=== PATIENT | male | born 1950 | race Caucasian/White ===

== ENCOUNTER 2018-08-14 07:15 | Day surgery (SDC) | payer MEDICARE, OTHER ==
[2018-08-09 16:51] VITALS: BMI 30.1
[~2018-08-14 07:15] MED LIST: LACTATED RINGERS 1,000 ML IV SCH
[2018-08-14 07:47] VITALS: TEMP 98.4
[2018-08-14] MEDS ORDERED: LIDOCAINE 1% 20 ML VIAL (10MG/ML) FOR IV START INTRADERMA ONE (07:55)
[2018-08-14] MEDS ORDERED: ENALAPRILAT 1.25 MG/ML 1 ML VIAL IVP ONE (08:06)
[2018-08-14 08:12] LABS: Glucose,Whole Blood 137 mg/dL (75-99)
[2018-08-14] MEDS ORDERED: PROPOFOL 10 MG/ML 20 ML VIAL IV ONE (08:43)
[2018-08-14 09:13] VITALS: RESP 16
--- NOTE | 2018-08-14 09:15 | P.PCN ---
Date of Procedure: 08/14/18 Procedure(s) Performed: Procedure: Total colonoscopy. Preoperative diagnosis: Screening for neoplasia. Postoperative diagnosis: Exam within normal limits. Preparation: HalfLytely prep. Sedation: Was provided by anesthesia. Brief clinical history: The patient is 68-year-old male who is scheduled for thi s evaluation for screening for neoplasia because of change as risk factor as well as family history of colon cancer in his brother. His last colonoscopy was in 2011. The patient has no abdominal complaints, bleeding or anemia. Procedure: With the patient on his left lateral decubitus position and after informed consent and adequate sedation, the perianal area was inspected and it did not show any fissures or fistulas. There were no masses felt on digital rectal examination. The Olympus CFH 190L video colonoscope was then inserted in the rectum in the usual fashion and advanced to the cecum. The mucosa appeared healthy. No polyps or tumors were seen or any obvious diverticular disease or other pathology. I retroflexed the endoscope in the rectum before the endoscope was withdrawn. The patient tolerated the procedure well. Plan: The patient was reassured. He will follow up with you as planned. With her family history of colon cancer in his brother, I am recommending repeat exam in 5 years.
[2018-08-14] MEDS ORDERED: hydrALAZINE HCL 20 MG/ML 1 ML VIAL IV ONE (09:39)
[2018-08-14 10:05] VITALS: BP 177/88; PULSE 75
== END 2018-08-14 10:15 | disposition home or self-care (01) ==
LOC: ORWHC2ENDO 07:15
DX: Z12.11 Encounter for screening for malignant neoplasm of colon (principal); Z80.0 Family history of malignant neoplasm of digestive organs; E11.9 Type 2 diabetes mellitus without complications; K21.9 Gastro-esophageal reflux disease without esophagitis; I10 Essential (primary) hypertension; E78.5 Hyperlipidemia, unspecified; M19.90 Unspecified osteoarthritis, unspecified site; Z79.84 Long term (current) use of oral hypoglycemic drugs; Z79.899 Other long term (current) drug therapy; Z86.73 Personal history of transient ischemic attack (TIA), and cerebral infarction without residual deficits
CPT/HCPCS: J0360; J2704; G0105

== ENCOUNTER 2018-08-19 14:36 | Emergency (ER) | payer MEDICARE, OTHER ==
[2018-08-19 14:45] VITALS: BP 175/71; PULSE 74; RESP 18; TEMP 98.9
--- NOTE | 2018-08-19 16:03 | ED ---
General Adult HPI - General Chief complaint: Recheck/Abnormal Lab/Rx Stated complaint: post op hypertension Time Seen by Provider: 08/19/18 15:14 Source: patient, RN notes reviewed Mode of arrival: ambulatory Limitations: no limitations - History of Present Illness Initial comments: 68-year-old male with a past medical history of CVA, diabetes, GERD, hy perlipidemia, hypertension presents to the emergency department for a chief complaint of change in blood pressures. Patient states that he had a colonoscopy 30. States that since then he has been checking his blood pressure about every hour. States that he has been noticing his blood pressure is higher than normal anywhere between the 140s to 200s. Patient states one time it did go down to 120 systolic. States he is concerned about his blood pressure changing every hour. Patient denies any symptoms. Denies any chest pain, shortness of breath, back pain, abdominal pain, headache, or visual changes. States he had an increase in his blood pressure medication a couple months ago. States he called his doctor who told him to take another blood pressure medication pill but he decided to come to the ER to be evaluated.Patient has no other complaints at this time including shortness of breath, chest pain, abdominal pain, nausea or vomiting, headache, or visual changes. - Related Data Home Medications Medication Instructions Recorded Confirmed Aspirin [Adult Low Dose Aspirin EC] 81 mg PO DAILY 08/09/18 08/14/18 Atorvastatin [Lipitor] 40 mg PO DAILY 08/09/18 08/09/18 Losartan/Hydrochlorothiazide 1 each PO DAILY 08/09/18 08/09/18 [Losartan-Hctz 100-12.5 mg Tab] Multivitamins, Thera [Multivitamin 1 tab PO DAILY 08/09/18 08/09/18 (formulary)] metFORMIN HCL [Glucophage] 500 mg PO QAM 08/09/18 08/09/18 Allergies Allergy/AdvReac Type Severity Reaction Status Date / Time No Known Allergies Allergy Verified 08/14/18 07:34 Review of Systems ROS Statement: Those systems with pertinent positive or pertinent negative responses have been documented in the HPI. ROS Other: All systems not noted in ROS Statement are negative. Past Medical History Past Medical History: CVA/TIA, Diabetes Mellitus, GERD/Reflux, Hyperlipidemia, Hypertension, Osteoarthritis (OA) Additional Past Medical History / Comment(s): stroke 2011- some vision loss left eye, History of Any Multi-Drug Resistant Organisms: None Reported Past Surgical History: Hernia Repair, Orthopedic Surgery, Tonsillectomy Additional Past Surgical History / Comment(s): fusion rt great toe, Past Anesthesia/Blood Transfusion Reactions: No Reported Reaction Past Psychological History: No Psychological Hx Reported Smoking Status: Former smoker Past Alcohol Use History: None Reported Past Drug Use History: None Reported - Past Family History Brother(s) Family Medical History: Cancer General Exam Limitations: no limitations General appearance: alert, in no apparent distress, anxious (Patient does appear somewhat anxious) Head exam: Present: atraumatic, normocephalic, normal inspection Eye exam: Present: normal appearance, PERRL, EOMI. Absent: scleral icterus, conjunctival injection, periorbital swelling ENT exam: Present: normal exam, normal oropharynx, mucous membranes moist, normal external ear exam Neck exam: Present: normal inspection, full ROM. Absent: tenderness, mening ismus, lymphadenopathy Respiratory exam: Present: normal lung sounds bilaterally. Absent: respiratory distress, wheezes, rales, rhonchi, stridor Cardiovascular Exam: Present: regular rate, normal rhythm, normal heart sounds. Absent: systolic murmur, diastolic murmur, rubs, gallop, clicks GI/Abdominal exam: Present: soft, normal bowel sounds. Absent: distended, tenderness, guarding, rebound, rigid Neurological exam: Present: alert, oriented X3, CN II-XII intact Psychiatric exam: Present: normal affect, normal mood Course Vital Signs 08/19/18 14:42 Temperature 98.9 F Pulse Rate 74 Respiratory 18 Rate Blood Pressure 175/71 O2 Sat by Pulse 99 Oximetry Medical Decision Making - Medical Decision Making 68-year-old male presents to the emergency department for a chief complaint of hypertension. Patient states his blood pressure has been ranging anywhere between the 140s to 200s. Patient does have a history of hypertension and recently had a medication increased. Patient states he has been checking his blood pressure every hour because of this and is concerned that it is not stable. Patient is denying any symptoms such as chest pain, shortness of breath, abdominal pain, back pain, visual changes. Patient's blood pressure is 135/71 here. I did discuss with patient that he has extrinsic asymptomatic hypertension. Reassured patient that at this time is recommended he follow-up with primary care for the pressure medication adjustment if necessary. Discussed that instead of checking his blood pressure every hour he should check it once a day at the same time every day and take this locked his primary care doctor. I did inform patient to return here if he is developing any symptoms and had a lengthy discussion about the symptoms. Patient is in agreement with this plan and agrees with discharge. Disposition Clinical Impression: Asymptomatic hypertension Disposition: HOME SELF-CARE Condition: Good Instructions (If sedation given, give patient instructions): Heart Healthy Diet (ED), Chronic Hypertension (ED) Additional Instructions: Please follow-up with your doctor on Monday. Please return here to the emergency department if you develop any symptoms such as chest pain, shortness of breath, abdominal pain, back pain, or headache. Is patient prescribed a controlled substance at d/c from ED?: No Referrals: Shubham Devries MD [Primary Care Provider] - 1-2 days Time of Disposition: 16:02
== END 2018-08-19 16:25 | disposition home or self-care (01) ==
LOC: EC 14:36
DX: I10 Essential (primary) hypertension (principal); E78.5 Hyperlipidemia, unspecified; E11.9 Type 2 diabetes mellitus without complications; Z79.82 Long term (current) use of aspirin; Z79.84 Long term (current) use of oral hypoglycemic drugs; Z79.899 Other long term (current) drug therapy; Z87.891 Personal history of nicotine dependence; Z86.73 Personal history of transient ischemic attack (TIA), and cerebral infarction without residual deficits
CPT/HCPCS: 99283